=== PATIENT | male | born 1935 | race African-American/Black ===

== ENCOUNTER 2018-10-28 09:56 | Emergency (ER) | payer MEDICARE, MEDICAID ==
[~2018-10-28] VITALS: Ht 180.3 cm; Wt 74.8 kg
[2018-10-28 10:04] VITALS: BP 175/84
--- NOTE | 2018-10-28 10:10 | NUR ---
ED Nurse Note: Patient was brouth by EMT from [facility]. [facility] [place] called 911 because of high BP and blood in the urine. Patient's [place] in [facility] is 156/88, other VSS. AAO x4, skin is dry, warm to touch. Patient has wound on his right wrist. Patient came with Preciado catheter 16 F. Urine output 50mL bright red color.
[2018-10-28 11:01] LABS: BASOPHILS % (AUTO) 2.1 % (0.0-2.0); EOSINOPHILS % (AUTO) 2.6 % (0.0-3.0); HEMATOCRIT 28.4 % (42.0-52.0); HEMOGLOBIN 9.1 G/DL (14.2-18.0); LYMPHOCYTES % (AUTO) 24.1 % (20.0-45.0); MEAN CORPUSCULAR VOLUME 86 FL (80-99); MONOCYTES % (AUTO) 18.3 % (1.0-10.0); PLATELET COUNT 189 K/UL (150-450); RED CELL DISTRIBUTION WIDTH 15.5 % (11.6-14.8); WHITE BLOOD COUNT 4.1 K/UL (4.8-10.8)
[2018-10-28 11:10] VITALS: BP 157/81
[2018-10-28 11:15] LABS: APPEARANCE,URINE CLOUDY; BILIRUBIN, URINE NEGATIVE (NEGATIVE); GLUCOSE, URINE (UA) NEGATIVE (NEGATIVE); KETONES,URINE 2+ (NEGATIVE); LEUKOCYTE ESTERASE ,URINE 1+ (NEGATIVE); NITRITE,URINE POSITIVE (NEGATIVE); PH,URINE 5 (4.5-8.0); PROTEIN,URINE 4+ (NEGATIVE); UROBILINOGEN,URINE NORMAL MG/DL (0.0-1.0)
[2018-10-28 11:16] LABS: INR 0.9 (0.9-1.1)
[2018-10-28 11:19] LABS: COLOR,URINE RED
[2018-10-28] MEDS ORDERED: NORVASC10 MG ORAL (11:21)
[2018-10-28] MEDS ORDERED: SODIUM BICARBO325 MG PO (11:21)
[2018-10-28] MEDS ORDERED: METOPROLOL TART25 MG ORAL (11:21)
[2018-10-28] MEDS ORDERED: SENNA S TABLET1 EAC1 PO (11:21)
[2018-10-28] MEDS ORDERED: HUMALOG 75/255 UNIT1 SUBQ (11:21)
[2018-10-28] MEDS ORDERED: HUMULIN N100 UNIT/1 SUBQ (11:21)
[2018-10-28] MEDS ORDERED: TAMSULOSIN HCL0.4 MG ORAL (11:21)
[2018-10-28] MEDS ORDERED: LIPITOR80 MG ORAL (11:21)
[2018-10-28] MEDS ORDERED: TYLENOL EXTRA500 MG ORAL (11:21)
[2018-10-28] MEDS ORDERED: FERROUSUL325 M1 PO (11:21)
[2018-10-28] MEDS ORDERED: ASPIR 8181 MG ORAL (11:21)
[2018-10-28] MEDS ORDERED: OMEPRAZOLE20 M2 ORAL (11:21)
[2018-10-28 11:24] LABS: ANION GAP 12 mmol/L (5-15); BLOOD UREA NITROGEN 39 mg/dL (7-18); CARBON DIOXIDE 19 MMOL/L (21-32); CHLORIDE 113 MMOL/L (98-107); CREATININE 3.1 MG/DL (0.55-1.30); POTASSIUM 4.6 MMOL/L (3.5-5.1); SODIUM 144 MMOL/L (136-145)
[2018-10-28 11:29] LABS: ALANINE AMINOTRANSFERASE 52 U/L (12-78); ALBUMIN 2.5 G/DL (3.4-5.0); ALBUMIN/GLOBULIN RATIO 0.6 (1.0-2.7); ALKALINE PHOSPHATASE 151 U/L (46-116); ASPARTATE AMINO TRANSFERASE 32 U/L (15-37); BILIRUBIN,TOTAL 0.5 MG/DL (0.2-1.0)
--- NOTE | 2018-10-28 11:43 | Emergency Room Report ---
History of Present Illness General Chief Complaint: Male Urogenital Problems Source: Patient, Medical Record, EMS Present Illness HPI 82-year-old male presents ED for evaluation. Brought in by EMS from longterm facility for hematuria, elevated BP. Systolic 177. States he "feels bad". Denies chest pain or shortness of breath. Denies fevers or chills. Denies nausea or vomiting. Patient notes history of prostate CA. No other aggravating relieving factors. Denies any other associated symptoms Allergies: Coded Allergies: LISINOPRIL (Verified Allergy, Unknown, 10/28/18) NSAIDS (NON-STEROIDAL ANTI-INFLAMMA (Unverified Allergy, Unknown, 10/28/18) Uncoded Allergies: NSAID (Allergy, Unknown, 10/28/18) Patient History Past Medical History: DM, HTN, other - prostate ca Past Surgical History: none Pertinent Family History: none Social History: Denies: smoking, alcohol use, drug use Immunizations: UTD Reviewed Nursing Documentation: PMH: Agreed; PSxH: Agreed Nursing Documentation-PMH Past Medical History: No History, Except For Hx Hypertension: Yes Hx Diabetes: Yes Hx Cancer: Yes - prostate Hx Neurological Problems: No - anemia, hyperlipidemia, metabolic encephalopathy. spinal stenosis Review of Systems All Other Systems: negative except mentioned in HPI Physical Exam Vital Signs Date Time Temp Pulse Resp B/P (MAP) Pulse Ox O2 Delivery O2 Flow Rate FiO2 10/28/18 09:47 98.8 102 16 158/78 100 Room Air Sp02 EP Interpretation: reviewed, normal General Appearance: alert, GCS 15, non-toxic Head: normocephalic, atraumatic Eyes: bilateral eye normal inspection, bilateral eye PERRL ENT: hearing grossly normal, normal pharynx, no angioedema, normal voice Neck: full range of motion, supple/symm/no masses Respiratory: chest non-tender, lungs clear, normal breath sounds, speaking full sentences Cardiovascular #1: regular rate, rhythm, no edema Cardiovascular #2: 2+ carotid (R), 2+ carotid (L), 2+ radial (R), 2+ radial (L) , 2+ dorsalis pedis (R), 2+ dorsalis pedis (L) Gastrointestinal: normal bowel sounds, non tender, soft, non-distended, no guarding, no rebound Rectal: deferred Genitourinary: normal inspection, no CVA tenderness Musculoskeletal: back normal, gait/station normal, normal range of motion, non- tender Neurologic: alert, oriented x3, responsive, motor strength/tone normal, sensory intact, speech normal Psychiatric: judgement/insight normal, memory normal, mood/affect normal, no suicidal/homicidal ideation Reflexes: 3+ bicep (R), 3+ bicep (L), 3+ tricep (R), 3+ tricep (L), 3+ knee (R) , 3+ knee (L) Skin: normal color, no rash, warm/dry, well hydrated Lymphatic: no adenopathy Medical Decision Making Diagnostic Impression: Primary Impression: Hematuria Qualified Codes: R31.9 - Hematuria, unspecified Additional Impressions: UTI (urinary tract infection) Qualified Codes: N39.0 - Urinary tract infection, site not specified; R31.9 - Hematuria, unspecified Weakness Renal insufficiency ER Course Hospital Course 82-year-old male presenting to ED with generalized weakness, hematuria Differential diagnoses include: UTI, dehydration, anemia Clinical course Patient placed on stretcher. 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 After initial history and physical, I ordered labs, IV fluids, EKG, horan, UA Labs - BUN/Cr elevated, no leukocytosis, troponins negative, UA + UTI + bacteria EKG - sinus tachycarda, no acute ischemic changes interpreted by me Abx given. Tachycardia improving after IV hydration Because of insurance patient will be transferred to [place] I feel this is a highly complex case requiring extensive working including EKG/ Rhythm strip, Xray/CT/US, Blood/urine lab work, repeat exams while in ED, and administration of strong opiates/narcotics for pain control, admission to hospital or close patient follow up. Diagnosis - UTI, generalized weakness, hematuria, weakness, renal insufficiency Transferred in serious condition Labs Test 10/28/18 10:30 10/28/18 10:40 White Blood Count 4.1 K/UL (4.8-10.8) Red Blood Count 3.30 M/UL (4.70-6.10) Hemoglobin 9.1 G/DL (14.2-18.0) Hematocrit 28.4 % (42.0-52.0) Mean Corpuscular Volume 86 FL (80-99) Mean Corpuscular Hemoglobin 27.7 PG (27.0-31.0) Mean Corpuscular Hemoglobin Concent 32.1 G/DL (32.0-36.0) Red Cell Distribution Width 15.5 % (11.6-14.8) Platelet Count 189 K/UL (150-450) Mean Platelet Volume 8.0 FL (6.5-10.1) Neutrophils (%) (Auto) 53.0 % (45.0-75.0) Lymphocytes (%) (Auto) 24.1 % (20.0-45.0) Monocytes (%) (Auto) 18.3 % (1.0-10.0) Eosinophils (%) (Auto) 2.6 % (0.0-3.0) Basophils (%) (Auto) 2.1 % (0.0-2.0) Prothrombin Time 9.5 SEC (9.30-11.50) Prothromb Time International Ratio 0.9 (0.9-1.1) Activated Partial Thromboplast Time 32 SEC (23-33) Sodium Level 144 MMOL/L (136-145) Potassium Level 4.6 MMOL/L (3.5-5.1) Chloride Level 113 MMOL/L (98-107) Carbon Dioxide Level 19 MMOL/L (21-32) Anion Gap 12 mmol/L (5-15) Blood Urea Nitrogen 39 mg/dL (7-18) Creatinine 3.1 MG/DL (0.55-1.30) Estimat Glomerular Filtration Rate mL/min (>60) Glucose Level 253 MG/DL (74-106) Calcium Level 9.0 MG/DL (8.5-10.1) Total Bilirubin 0.5 MG/DL (0.2-1.0) Aspartate Amino Transf (AST/SGOT) 32 U/L (15-37) Alanine Aminotransferase (ALT/SGPT) 52 U/L (12-78) Alkaline Phosphatase 151 U/L (46-116) Troponin I 0.015 ng/mL (0.000-0.056) Total Protein 6.8 G/DL (6.4-8.2) Albumin 2.5 G/DL (3.4-5.0) Globulin 4.3 g/dL Albumin/Globulin Ratio 0.6 (1.0-2.7) Lipase 63 U/L (73-393) Urine Color Red Urine Appearance Cloudy Urine pH 5 (4.5-8.0) Urine Specific [place] 1.015 (1.005-1.035) Urine Protein 4+ (NEGATIVE) Urine Glucose (UA) Negative (NEGATIVE) Urine Ketones 2+ (NEGATIVE) Urine Blood 5+ (NEGATIVE) Urine Nitrite Positive (NEGATIVE) Urine Bilirubin Negative (NEGATIVE) Urine Urobilinogen Normal MG/DL (0.0-1.0) Urine Leukocyte Esterase 1+ (NEGATIVE) Urine RBC Tntc /HPF (0 - 0) Urine WBC 2-4 /HPF (0 - 0) Urine Squamous Epithelial Cells Occasional /LPF Urine Bacteria Moderate /HPF (NONE) EKG Diagnostic Results Rate: tachycardiac Rhythm: NSR ST Segments: no acute changes ASA given to the pt in ED: No Rhythm Strip Diag. Results EP Interpretation: yes Rhythm: NSR, no PVC's, no ectopy Last Vital Signs Date Time Temp Pulse Resp B/P (MAP) Pulse Ox O2 Delivery O2 Flow Rate FiO2 10/28/18 11:10 98.4 101 19 157/81 98 Room Air Status: improved Disposition: [facility] Condition: Stable Referrals: NON PHYSICIAN (PCP) Pedro Houston MD Oct 28, 2018 11:43
[2018-10-28] MEDS ORDERED: cefTRIAXone 1 GM in NS 55 ML IVPB ONE (12:00)
[2018-10-28 12:06] VITALS: BP 162/77
--- NOTE | 2018-10-28 12:22 | NUR ---
ED Nurse Note: patient is in the bed sleeping, no acute disstress noticed
--- NOTE | 2018-10-28 14:11 | NUR ---
ED Nurse Note: gave report to SOURAV Delgado for transfer pt to [facility]
[2018-10-28 14:19] VITALS: BP 158/74
--- NOTE | 2018-10-28 14:22 | NUR ---
ED Nurse Note: patient was transfered to [facility] [place] at 1420. VSS at this time, AAO x3. All belongings werer given to the patient.
== END 2018-10-28 14:25 | disposition short-term general hospital (02) ==
LOC: EDBD 09:56 → EMR 10:30
DX: R31.9 Hematuria, unspecified (principal); N39.0 Urinary tract infection, site not specified; R53.1 Weakness; N28.9 Disorder of kidney and ureter, unspecified; E11.9 Type 2 diabetes mellitus without complications; I10 Essential (primary) hypertension; Z85.46 Personal history of malignant neoplasm of prostate; Z88.8 Allergy status to other drugs, medicaments and biological substances
CPT/HCPCS: 36415; 80053; 81003; 83690; 84484; 85025; 85610; 85730; 86850; 86900; 86901; 87086; 93005; 96361; 96365; 99284; J0696